=== PATIENT | female | born 1950 ===

== ENCOUNTER 2024-03-18 22:28 | Inpatient (IN) | payer OTHER ==
[~2024-03-18] VITALS: Ht 160 cm; Wt 72.2 kg
[2024-03-18] MEDS ORDERED: MethylPREDNISolone Sod Succ 125 MG Vial IV ONE (22:35)
[2024-03-18] MEDS ORDERED: Albuterol 2.5 MG/3 ML VIAL INH SCH (22:35)
[2024-03-18 22:42] LABS: BASOPHILS ABSOLUTE AUTO 0.05 K/mm3 (0.00-0.23); BASOPHILS PERCENT AUTO 0 % (0-2); EOSINOPHILS ABSOLUTE AUTO 0.28 K/mm3 (0.00-0.68); EOSINOPHILS PERCENT AUTO 2 % (0-6); Hemoglobin 13.7 g/dL (11.5-16.0); IMMATURE GRAN PERCENT AUTO 1 % (0-1); LYMPHOCYTES PERCENT AUTO 13 % (21-46); MONOCYTES ABSOLUTE AUTO 1.24 K/mm3 (0.16-1.47); MONOCYTES PERCENT AUTO 9 % (4-13); Mean Corpuscular HGB 27.4 pg (26.0-34.0); Mean Corpuscular HGB Conc 31.9 g/dL (31.5-36.5); Mean Corpuscular Volume 86 fL (80-100); Mean Platelet Volume 9.2 fL (9.1-12.4); NEUTROPHILS ABSOLUTE AUTO 10.95 K/mm3 (1.96-9.15); NEUTROPHILS PERCENT AUTO 76 % (41-73); Platelet Count 297 K/mm3 (150-400); RDW Coefficient Variation 13.5 % (11.7-14.2); RDW Standard Deviation 42.5 fL (35.1-46.3); White Blood Cell Count 14.52 K/mm3 (4.00-11.30)
[2024-03-18 22:47] LABS: Base Excess Venous 8.3 mmol/L; Bicarbonate Venous 30.1 mmol/L (24.0-30.0); PCO2 Venous 55.7 mmHg (38-42); pH Blood Venous 7.39 (7.34-7.37)
[2024-03-18 23:06] LABS: Albumin/Globulin Ratio 0.8 (0.8-1.8); Bilirubin, Total 0.7 mg/dL (0.1-1.0); Bun/Creatinine Ratio 19.1 (12.0-20.0); Calcium, Blood 9.2 mg/dL (8.5-10.1); Creatinine, Blood 0.79 mg/dL (0.40-1.00); Globulin, Blood 3.6 g/dL (2.2-4.0); Potassium, Blood 4.1 mmol/L (3.5-5.5); Total Protein, Blood 6.6 g/dL (6.4-8.2)
[2024-03-18 23:25] LABS: Influenza A, PCR NEGATIVE (NEGATIVE); Influenza B, PCR NEGATIVE (NEGATIVE); Resp Syncytial Virus, PCR NEGATIVE (NEGATIVE); SARS-Cov-2 (COVID-19) PCR, MMC NEGATIVE (NEGATIVE)
[2024-03-19] VITALS (7 sets, daily range): BP systolic 91–127; BP diastolic 61–87
[2024-03-19] MEDS ORDERED: ASPI81CH PO (00:03)
[2024-03-19] MEDS ORDERED: SERT100 PO (00:03)
[2024-03-19] MEDS ORDERED: BUSP10 PO (00:04)
[2024-03-19] MEDS ORDERED: Acetaminophen 325 MG TABLET PO PRN (00:50)
[2024-03-19] MEDS ORDERED: FLU VACC TS2024-25(6MOS UP)/PF 45 MCG/0.5 ML SYRINGE IM ONE (00:50)
[2024-03-19] MEDS ORDERED: Ipratropium/Albuterol SulF 2.5-0.5MG/3 ML Amp INH SCH (00:55)
[2024-03-19] MEDS ORDERED: METO25ER PO (01:52)
[2024-03-19] MEDS ORDERED: ALBU2.5V5 INH (01:53)
[2024-03-19 01:54] LABS: Base Excess Venous 6.7 mmol/L; Bicarbonate Venous 28.8 mmol/L (24.0-30.0); PCO2 Venous 53.5 mmHg (38-42); pH Blood Venous 7.38 (7.34-7.37)
--- NOTE | 2024-03-19 03:02 | NUR ---
ARRIVAL TO PCU NOTE RECEIVED REPORT FROM SENIOR VICE PRESIDENT AND CHIEF INFORMATION OFFICER MARITO, PT SHORTLY ARRIVED TO PCU 13 AT 0129. TRANSFERRED FROM ER [facility] TO PCU BED VIA SLIDE SHEET. A/x4 AND COOPERATIVE WITH CARE. ANSWERS QUESTIONS APPROPRIATELY AND ABLE TO MAKE HER NEEDS KNOWN. CARDIAC, TELE SHOWED ST 100'S WITH INTERMITTENT PVC'S NOTED. SBP RANGING 90-100'S. RESPIRATORY, MAINTAINS SPO2 >90% ON 5L NC. ENDORSES SOME DYSPNEA WITH EXERTION, BUT DENIES SOB WHILE AT REST. INTERMITTENT MOIST COUGH NOTED WITH WHITE SPUTUM PRODUCTION. GI/, BS PRESENT IN ALL QUADRANTS, DENIES N/V OR ABD PAIN AT THIS TIME. REPORTS RECENTS DIARRHEA AT HOME, BUT "IT HAS GOTTEN BETTER". ABLE TO AMBULATE TO [facility] [place] WITH ONE STAFF ASSIST TO VOID. SKIN OVERALL C/D/I, SOME MINOR REDNESS NOTED ON COCCYX BUT IT IS BLANCHABLE. 1xPIV IN LAC. FLUSHES WELL AND DRAWS BACK. WILL CONTINUE TO PROCESS MD ORDERS. SHAE DANIEL OF THIS NOTE.
[2024-03-19] MEDS ORDERED: Albuterol 2.5 MG/3 ML VIAL INH PRN (04:25)
[2024-03-19 04:58] LABS: BASOPHILS ABSOLUTE AUTO 0.02 K/mm3 (0.00-0.23); BASOPHILS PERCENT AUTO 0 % (0-2); EOSINOPHILS ABSOLUTE AUTO 0.01 K/mm3 (0.00-0.68); EOSINOPHILS PERCENT AUTO 0 % (0-6); Hematocrit 40.8 % (33.0-51.0); Hemoglobin 12.8 g/dL (11.5-16.0); IMMATURE GRAN ABSOLUTE AUTO 0.06 K/mm3 (0.00-0.10); IMMATURE GRAN PERCENT AUTO 1 % (0-1); LYMPHOCYTES ABSOLUTE AUTO 0.38 K/mm3 (0.84-5.20); LYMPHOCYTES PERCENT AUTO 3 % (21-46); MONOCYTES PERCENT AUTO 1 % (4-13); Mean Corpuscular HGB 26.9 pg (26.0-34.0); Mean Corpuscular HGB Conc 31.4 g/dL (31.5-36.5); Mean Corpuscular Volume 86 fL (80-100); Mean Platelet Volume 9.2 fL (9.1-12.4); NEUTROPHILS ABSOLUTE AUTO 11.27 K/mm3 (1.96-9.15); NEUTROPHILS PERCENT AUTO 95 % (41-73); Platelet Count 250 K/mm3 (150-400); RDW Coefficient Variation 13.3 % (11.7-14.2); RDW Standard Deviation 42.1 fL (35.1-46.3); Red Blood Cell Count 4.75 M/mm3 (3.80-5.20); White Blood Cell Count 11.84 K/mm3 (4.00-11.30)
--- NOTE | 2024-03-19 05:18 | NUR ---
SHIFT SUMMARY NO ACUTE CHANGES SINCE ARRIVAL TO PCU NOTE. SEE NOTE FOR DETAILS. PT CONTINUES TO TOLERATE CPAP WELL. NO NEW ORDERS AT THIS TIME, WILL REPORT TO ONCOMING RN. MARÍA, SHAE OF THIS NOTE.
[2024-03-19 05:49] LABS: Albumin, Blood 2.8 g/dL (3.4-5.0); Albumin/Globulin Ratio 0.8 (0.8-1.8); Bilirubin, Total 0.7 mg/dL (0.1-1.0); Bun/Creatinine Ratio 23.5 (12.0-20.0); Calcium, Blood 9.1 mg/dL (8.5-10.1); Creatinine, Blood 0.68 mg/dL (0.40-1.00); Globulin, Blood 3.6 g/dL (2.2-4.0); Potassium, Blood 3.9 mmol/L (3.5-5.5); Total Protein, Blood 6.4 g/dL (6.4-8.2)
--- NOTE | 2024-03-19 07:29 | NUR ---
ASSUMPTION NOTE: THIS RN TO ASSUME CARE OF PATIENT.PATIENT IS IN BED WATCHING TV AND DRINKING TEA. BLOOD SUGAR TAKEN AND BELOW RANGE IN EMAR. VITAL SIGNS TAKEN AND STABLE.
[2024-03-19] MEDS ORDERED: AMOX-CLAV 875-1 EAC5 PO (08:10)
[2024-03-19] MEDS ORDERED: DOXY100 PO (08:11)
[2024-03-19] MEDS ORDERED: Sertraline HCl 100 MG Tab PO SCH (09:00)
[2024-03-19] MEDS ORDERED: Aspirin 81 MG Chew PO SCH (09:00)
[2024-03-19] MEDS ORDERED: Metoprolol Succinate 25 MG TABCR PO SCH (09:00)
[2024-03-19] MEDS ORDERED: Enoxaparin 40 MG/0.4 ML SYR SC SCH (09:00)
[2024-03-19] MEDS ORDERED: GuaiFENesin 600 MG TabCR PO SCH (09:00)
[2024-03-19] MEDS ORDERED: MethylPREDNISolone Sod Succ 125 MG Vial IV SCH (09:00)
[2024-03-19] MEDS ORDERED: BusPIRone HCl 10 MG Tab PO SCH (09:00)
[2024-03-19] MEDS ORDERED: Albuterol 2.5 MG/3 ML VIAL INH SCH ×2 (10:10→12:10)
--- NOTE | 2024-03-19 11:31 | NUR ---
PT NOTIFIED THAT SHE IS MEDICAL WITHOUT TELE STATUS AND A ROOM NUMBER WAS GIVEN. PATIENT AWARE AND REPORT WAS GIVEN TO RECEIVING RN.
--- NOTE | 2024-03-19 12:23 | NUR ---
TRANSFER NOTE: PATIENT IS ALERT AND ORIENTED X4 AND ACTIVE IN HER CARE. IS NOW MEDICAL STATUS WITHOUT TELE AND WAS TRANSFFERED TO MEDICAL FLOOR VIA WHEELCHAIR BY PCT. ALL PERSONAL BELONGINGS WERE TAKEN AND RESPIRATORY WAS CONTACTED TO TAKE UP CPAP MACHINE.
--- NOTE | 2024-03-19 12:26 | NUR ---
PT ARRIVED TO ROOM AT 1145 VIA WHEELCHAIR ON 4L OF 02. PT IS DOING WELL. PT SETTLED INTO ROOM AND CALL ANNETTE SYED WILL CONTINUE TO MONITOR.
--- NOTE | 2024-03-19 16:54 | NUR ---
NO ACUTE CHANGES PT AOX4 AND COOPERATIVE OF CARE. PT IS A ONE PERSON ASSIST AND IS DOING WELL ON 4L. ABLE TO MAKE NEEDS KNOWN AND CALL LIGHT WITHIN REACH WILL CONTINUE TO MONITOR.
[2024-03-20 03:48] VITALS: BP 104/67
[2024-03-20 05:51] LABS: BASOPHILS ABSOLUTE AUTO 0.02 K/mm3 (0.00-0.23); BASOPHILS PERCENT AUTO 0 % (0-2); EOSINOPHILS PERCENT AUTO 0 % (0-6); Hematocrit 41.1 % (33.0-51.0); Hemoglobin 13.2 g/dL (11.5-16.0); IMMATURE GRAN ABSOLUTE AUTO 0.19 K/mm3 (0.00-0.10); IMMATURE GRAN PERCENT AUTO 1 % (0-1); LYMPHOCYTES ABSOLUTE AUTO 1.13 K/mm3 (0.84-5.20); LYMPHOCYTES PERCENT AUTO 7 % (21-46); MONOCYTES ABSOLUTE AUTO 0.67 K/mm3 (0.16-1.47); MONOCYTES PERCENT AUTO 4 % (4-13); Mean Corpuscular HGB 27.6 pg (26.0-34.0); Mean Corpuscular HGB Conc 32.1 g/dL (31.5-36.5); Mean Corpuscular Volume 86 fL (80-100); Mean Platelet Volume 9.4 fL (9.1-12.4); NEUTROPHILS ABSOLUTE AUTO 14.63 K/mm3 (1.96-9.15); NEUTROPHILS PERCENT AUTO 88 % (41-73); Platelet Count 276 K/mm3 (150-400); RDW Coefficient Variation 13.4 % (11.7-14.2); RDW Standard Deviation 42.3 fL (35.1-46.3); Red Blood Cell Count 4.79 M/mm3 (3.80-5.20); White Blood Cell Count 16.64 K/mm3 (4.00-11.30)
[2024-03-20 06:17] LABS: Albumin, Blood 2.9 g/dL (3.4-5.0); Albumin/Globulin Ratio 0.8 (0.8-1.8); Bilirubin, Total 0.6 mg/dL (0.1-1.0); Bun/Creatinine Ratio 29.7 (12.0-20.0); Calcium, Blood 9.3 mg/dL (8.5-10.1); Creatinine, Blood 0.67 mg/dL (0.40-1.00); Globulin, Blood 3.6 g/dL (2.2-4.0); Potassium, Blood 4.6 mmol/L (3.5-5.5); Total Protein, Blood 6.5 g/dL (6.4-8.2)
--- NOTE | 2024-03-20 06:44 | NUR ---
SHIFT SUMMARY AT START OF SHIFT, PT SITTING UP IN BED. PT HAS BEEN PLEASANT AND COOPERATIVE WITH HER CARE. CALLS APPROPRIATELY. CALL LIGHT IN REACH. PT SLEPT THROUGH THE NIGHT WITHOUT ISSUE.
[2024-03-20 07:54] VITALS: BP 141/84
[2024-03-20] MEDS ORDERED: Loperamide HCl 2 MG Cap PO ONE (11:00)
[2024-03-20] MEDS ORDERED: Loperamide HCl 2 MG Cap PO PRN (11:00)
[2024-03-20] MEDS ORDERED: GUAI600T33 PO (14:03)
[2024-03-20] MEDS ORDERED: PRED20 PO (14:03)
[2024-03-20 15:08] VITALS: BP 143/71
--- NOTE | 2024-03-20 15:29 | NUR ---
DISCHARGE NOTE MS FAUST VERBALISED UNDERSTANDING OF WRITTEN AND VERBAL DISCHARGE INSTRUCTIONS. PIV REMOVED BY STUDENT NURSE AND PT HAS CALLED HER CAREGIVER TO TAKE HER HOME. 1 PERSON ASSIST TO BSC TODAY. SOME LOOSE STOOL, GIVEN IMMODIUM. EDUCATED ON INCENTIVE SPIROMETER AND SHE DID IT WITH GOOD TECHNICHE UP TO 1000ML. ENCOURAGED TO DO I.S. HOURLY. ON OXYGEN 4L NC WITHOUT SOB. SHE SAID SHE HAS OXYGEN SET UP AT HOME AND FOR TRANSPORT.
--- NOTE | 2024-03-20 15:36 | NUR ---
LEFT AT 1536 VIA WHEELCHAIR/WITH CUSTOMER MANAGEMENT SPECIALIST AND CAREGIVER.
== END 2024-03-20 15:36 | disposition home or self-care (01) | DRG 189 ==
LOC: ER 22:28 → PCU 03-19 00:46 → MEDS 03-19 11:41
PROVIDERS: Emergency Medicine; ADMIT Student in an Organized Health Care Education/Training Program
PROC: 5A09357 Assistance with Respiratory Ventilation, Less than 24 Consecutive Hours, Continuous Positive Airway Pressure (ICD-10-PCS; principal; 2024-03-18)
DX: J96.21 Acute and chronic respiratory failure with hypoxia (principal); J44.1 Chronic obstructive pulmonary disease with (acute) exacerbation; J96.22 Acute and chronic respiratory failure with hypercapnia; Z66 Do not resuscitate; F41.9 Anxiety disorder, unspecified; I50.9 Heart failure, unspecified; R91.1 Solitary pulmonary nodule; D72.829 Elevated white blood cell count, unspecified; Z99.81 Dependence on supplemental oxygen
CPT/HCPCS: 0241U; 36415; 71045; 80053; 82803; 82947; 83036; 83735; 83880; 84484; 85025; 85379; 90656; 93005; 93010; 94640; 94644; 94660; 94664; 94762; 96374; 99285-25; A9270; J1650; J2919